=== PATIENT | female | born 1960 | race Caucasian/White ===

== ENCOUNTER 2018-11-11 21:57 | Emergency (ER) | payer SELFPAY ==
[2018-11-11] MEDS ORDERED: Ondansetron 4 MG Tab.DIS PO ONE (22:37)
[2018-11-11] MEDS ORDERED: EPINEPHrine/Lidocaine/Tetracai 3 ML ML TOP ONE (22:38)
--- NOTE | 2018-11-11 23:23 | EDM.PDOC ---
ED HPI GENERAL MEDICAL PROBLEM - General Chief Complaint: Head Injury Stated Complaint: SLIPPED ON ICE AND HIT BACK OF HEAD Time Seen by Provider: 11/11/18 22:28 Source of Information: Reports: Patient History Limitations: Reports: No Limitations - History of Present Illness INITIAL COMMENTS - FREE TEXT/NARRATIVE: The patient slipped on the ice and hit the back of her head. She has a laceration to the back of her head. She does not think she had any LOC. She does have amnesia of the event and she has been asking the same questions over and over. She does not remember eating at her [employer]. Her tetanus is up to date. She has no numbness or weakness. She has no blurred or double vision. She has a headache. She has some nausea but no vomiting. Onset: Sudden Duration: Minutes: Location: Reports: Head Quality: Reports: Sharp Severity: Moderate Improves with: Reports: None Worsens with: Reports: None Associated Symptoms: Reports: Headaches, Nausea/Vomiting. Denies: Chest Pain, Cough, Fever/Chills Treatments PERCH MENDER: Reports: Acetaminophen Posterior Head Pain Score (Numeric/FACES): 3 - Related Data Allergies Allergy/AdvReac Type Severity Reaction Status Date / Time Sulfa (Sulfonamide Allergy Cannot Verified 11/11/18 22:07 Antibiotics) Remember Home Meds: Home Meds . 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: Reports: Endometriosis Psychiatric History: Reports: Addiction Other Dermatologic History: abcess to groins--anarobeic bacteria - Past Surgical History Musculoskeletal Surgical History: Reports: Arthroscopic Knee Social & Family History - Tobacco Use Smoking Status *Q: Never Smoker Second Hand Smoke Exposure: No - Caffeine Use Caffeine Use: Reports: Coffee - Recreational Drug Use Recreational Drug Use: No ED ROS GENERAL - Review of Systems Review Of Systems: See Below Constitutional: Reports: No Symptoms HEENT: Reports: Other (Lacration to the back of her head) Respiratory: Reports: No Symptoms Cardiovascular: Reports: No Symptoms Endocrine: Reports: No Symptoms GI/Abdominal: Reports: Nausea. Denies: Abdominal Pain, Diarrhea, Vomiting : Reports: No Symptoms Musculoskeletal: Reports: No Symptoms Neurological: Reports: Headache. Denies: Numbness, Weakness ED EXAM, HEAD INJURY - Physical Exam Exam: See Below Exam Limited By: No Limitations General Appearance: Alert, No Apparent Distress Head: Other (3cm laceration to the occipital region.) Eyes: Bilateral Eye: EOMI, PERRL Ears: Normal External Exam Nose: Normal Inspection Neck: Non-Tender, Normal Alignment, Normal Inspection Respiratory: No Respiratory Distress, Lungs Clear, Normal Breath Sounds Cardiovascular: Regular Rate, Rhythm, No Edema, No Murmur GI/Abdominal Exam: Soft, Non-Tender, No Organomegaly, No Mass Back Exam: Normal Inspection Extremities: Normal Inspection ED LACERATION/WOUND & JACKIE PROC - Laceration/Wound Repair Head Lac/wound length in cm: 3 Appearance: Subcutaneous, Linear Anesthetic Type: Topical (LET) Skin Prep: Saline Exploration/Debridement/Repair: Wound Explored, In a Bloodless Field, Explored to Base Closed with: Sullivan # of Sutures: 5 Tetanus Status Addressed: Yes Complications: No Course - Vital Signs Last Recorded V/S: Last Vital Signs Temp 97.7 F 11/11/18 22:03 Pulse 77 11/11/18 22:03 Resp 14 11/11/18 22:03 BP 146/80 H 11/11/18 22:03 Pulse Ox 100 11/11/18 22:03 - Orders/Labs/Meds Orders: Active Orders 24 hr Category Date Time Status Head wo Cont [CT] Stat Exams 11/11/18 22:37 Taken Meds: Medications Discontinued Medications Generic Name Dose Route Start Last Admin Trade Name Susu PRN Reason Stop Dose Admin Lidocaine/Tetracaine 3 ml 11/11/18 22:38 11/11/18 22:48 Let Soln TOP 11/11/18 22:39 3 ml ONETIME ONE Administration Ondansetron HCl 4 mg 11/11/18 22:37 11/11/18 22:47 Zofran Odt PO 11/11/18 22:38 4 mg ONETIME ONE Administration - Re-Assessments/Exams Free Text/Narrative Re-Assessment/Exam: 11/11/18 23:[address] of her head and I had my nurse put some LET on her wound. 11/11/18 23:[address] of her head looks good. I stapled her laceration. She does have a concussion. Departure - Departure Time of Disposition: 23:45 Disposition: Home, Self-Care 01 Condition: Good Clinical Impression: Fall Qualifiers: Encounter type: initial encounter Qualified Code(s): W19.XXXA - Unspecified fall, initial encounter Laceration of scalp Qualifiers: Encounter type: initial encounter Qualified Code(s): S01.01XA - Laceration without foreign body of scalp, initial encounter Concussion Qualifiers: Encounter type: initial encounter Loss of consciousness presence/duration: without LOC Qualified Code(s): S06.0X0A - Concussion without loss of consciousness, initial encounter - Discharge Information *PRESCRIPTION DRUG MONITORING PROGRAM REVIEWED*: No *COPY OF PRESCRIPTION DRUG MONITORING REPORT IN PATIENT PAULINO: No Referrals: PCP,None [Primary Care Provider] - Kristine Castillo PA-C [Physician Roentgenology Teacher] - 1 Week Forms: ED Department Discharge Additional Instructions: Wash the wound with warm soapy water 2 times per day and apply antibiotic ointment after. Have the rena removed in 1 week. Look for any signs of infection such as redness, swelling, pain, or drainage. If you see any of those signs, please return or see your doctor. You may need an oral antibiotic. Please return if you have worsening headache, nausea, vomiting, numbness, weakness or if you are not acting right. Take motrin or tylenol for pain. - My Orders Last 24 Hours: My Active Orders 11/11/18 22:37 Head wo Cont [CT] Stat - Assessment/Plan Last 24 Hours: My Active Orders 11/11/18 22:37 Head wo Cont [CT] Stat
--- NOTE | 2018-11-12 16:59 | CT ---
Head CT Technique: Multiple axial sections through the brain were obtained. Intravenous contrast was not utilized. Comparison: No prior intracranial imaging. Findings: Ventricles along with basal cisterns and sulci over the convexities are slightly prominent. No abnormal parenchymal densities are seen. No evidence of intracranial hemorrhage. No midline shift or mass effect is seen. Bone window settings were reviewed which show scalp injury posteriorly. No acute calvarial abnormality is appreciated. Impression: 1. Scalp injury posteriorly. 2. No acute intracranial abnormality is identified. Diagnostic code #2 I agree with preliminary report from ad, finalized on 11/12/18, 12:07 AM Central Time
== END 2018-11-11 23:49 | disposition home or self-care (01) ==
LOC: JD.ED 21:57
DX: S06.0X0A Concussion without loss of consciousness, initial encounter (principal); S01.01XA Laceration without foreign body of scalp, initial encounter; Z88.2 Allergy status to sulfonamides; W00.0XXA Fall on same level due to ice and snow, initial encounter
CPT/HCPCS: 12002; 70450; 99284; A9270; 99283

== ENCOUNTER 2021-01-20 12:27 | Emergency (ER) | payer BC ==
--- NOTE | 2021-01-20 12:43 | EDM.PDOC ---
ED HPI GENERAL MEDICAL PROBLEM - General Chief Complaint: Head Injury Stated Complaint: [facility] Time Seen by Provider: 01/20/21 12:30 Source of Information: Reports: EMS History Limitations: Reports: Intoxication, Other (possible altered mental status. ) - History of Present Illness INITIAL COMMENTS - FREE TEXT/NARRATIVE: 61-year-old female reportedly under the influence of alcohol since last evening and possibly drinking earlier this morning reportedly fell backwards down a flight of stairs at her home this morning. Apparently there are 10 stairs and she fell backwards witnessed by someone else in the home. Reported transient loss of consciousness for approximately 5 minutes. Patient was placed in a c- collar and placed on spine board and transferred to the ED. She does have a hematoma left occipital scalp and an abrasion to her left forehead above her eyebrow. She is known to have a fractured metacarpal in her left foot--I believe 5th -- and is in a cam walker. This was removed in the ED. is unclear if she fell down the stairs with it on her was placed on after she fell down the stairs. Onset: Today, Sudden Onset Date: 01/20/21 Onset Time: 11:55 Duration: Minutes: Location: Reports: Head, Neck, Back Quality: Reports: Ache, Throbbing Severity: Moderate Improves with: Reports: None Worsens with: Reports: None Context: Reports: Trauma. Denies: Activity, Exercise, Lifting, Sick Contact Associated Symptoms: Reports: Confusion. 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 Apparently she just recently enjoyed 2 months of sobriety part of it was due to being in treatment program for 30 days. It is unclear how many days ago she started drinking but she was known to be markedly under the influence of alcohol last evening at her parents home where she is residing. Social & Family History - Caffeine Use Caffeine Use: Reports: Coffee - Living Situation & Occupation Living situation: Reports: Single Occupation: Employed ED ROS GENERAL - Review of Systems Review Of Systems: Unable To Obtain (Able to obtain as the patient is nonverbal at this point time she will nod her head a little bit but she appears to be markedly intoxicated) Reason Not Obtained: Markedly intoxicated. ED EXAM, HEAD INJURY - Physical Exam Exam: See Below Exam Limited By: Other (Mental status and intoxication by alcohol I believe.) General Appearance: Lethargic, Mild Distress, Other Head: Scalp Hematoma (Sachi Mike left occipital scalp.), Facial Abrasions (Abrasions above her left eyebrow forehead) Nexus Criteria: Posterior, Midline Cervical Tenderness, Evidence of Intoxication. No: Altered Level of Consciousness, Painful Distraction Injuries Eyes: Bilateral Eye: Normal Inspection (No scleral icterus or blepharal pallor.), Nystagmus (Nystagmus on lateral gaze bilaterally.), PERRL Ears: Normal External Exam (No blood in either external canal.) Nose: Normal Inspection Throat/Mouth: Other (Tongue is moist. No evidence of dental or tongue trauma.) Neck: Other (C-spine is immobilized in a collar and will remain this way until cleared by) Respiratory: No Respiratory Distress ( CT.), Lungs Clear, Normal Breath Sounds, No Accessory Muscle Use, Other (No evidence of injuries to the clavicles and acromioclavicular joints ribs or sternum on exam.) Cardiovascular: Normal Peripheral Pulses, Regular Rate, Rhythm, No Edema, No Gallop, No Murmur (No subcutaneous emphysema hematomas evident.), No Rub GI/Abdominal Exam: Normal Bowel Sounds, Soft, Non-Tender, No Organomegaly, No Abnormal Bruit, No Mass, Pelvis Stable, Other Extremities: Normal Range of Motion, Other (Ecchymoses over the dorsal aspect of her lateral left foot apparently has a fracture in her left fifth metacarpal and is in a cam boot move both upper extremities and there is no evidence of injuries to the wrists fingers elbows or shoulders. There was no obvious injuries to her thighs knees ankles) Neurologic: No: Oriented x 3 (Oriented to time and place.) DTR: 0: Patella (R), Patella (L), Achilles (R), Achilles (L), 1+: Bicep (R), Bicep (L) Skin: Normal Color, Warm/Dry - Mounika Coma Score Best Eye Response (Mounika): (4) Open Spontaneously Best Verbal Response (Mounika): (4) Confused Conversation Best Motor Response (Mounika): (5) Localizes to Pain Mounika Total: 13 ED LACERATION/WOUND & JACKIE PROC - Endotracheal Intubation ET Intubation Indication: Airway Protection, Other Preparation: Suction, Balloon Tested (Cranial hemorrhage), BVM Set Up, Difficult Airway Equip Pre-Oxygenation: Assisted with BVM, 100% FiO2 Anesthesia Meds: Etomidate (1 mg), Midazolam (2 mg), Vecuronium (7 mg), Other (Lidocaine 100 mg) Placement: Orotracheal, Cuffed, Uncomplicated Placement Cords Visualized: Yes, Grade 1 Number of Attempts: 1 Confirmed By: CO2 Indicator, Bilateral Breath Sounds, Chest Xray ED CENTRAL LINE INSERTION - Central Line Insertion Central Line Indication: IV access Site: subclavian (R) Prep: CDC/MBT Guidelines, Sterile Drapes, Chlorhexidine Lumen: triple Gauge: 7Fr Ultrasound guided: No Guidewire and dilator removed intact: Yes Micropuncture kit used: Yes Complications: No Secured with suture: Yes Post placement confirmation: CXR, all ports aspirated, all ports flushed CXR post-procedure: no pneumothorax, no hemothorax Dressing applied: by nurse #1 Interpretation EKG Date: 01/20/21 Time: 13:42 Rhythm: NSR Rate (Beats/Min): 92 [place]: Normal P-Wave: Enlarged (Consider left atrial hypertrophy) QRS: Other (Early R wave transition consider right ventricular hypertrophy versus septal hypertrophy pattern. Decreased voltage in the limb leads.) ST-T: Other (T wave inversion V2 to V4 nonspecific finding diffuse repolarization abnormality) EKG Interpretation Comments: Abnormal ECG Course - Vital Signs Last Recorded V/S: Last Vital Signs Temp 36.2 C 01/20/21 12:34 Pulse 73 01/20/21 12:34 Resp 10 L 01/20/21 12:34 BP 129/81 01/20/21 12:34 Pulse Ox 100 01/20/21 12:34 - Orders/Labs/Meds Orders: Active Orders 24 hr Category Date Time Status EKG Documentation Completion [RC] STAT Care 01/20/21 12:38 Active Lactated Ringers [Ringers, Lactated] 1,000 ml Med 01/20/21 12:45 Active IV ASDIRECTED Medication Orders Lactated Ringer's (Ringers, Lactated) 1,000 mls @ 125 mls/hr IV ASDIRECTED DEV Last Admin: 01/20/21 13:07 Dose: 125 mls/hr Documented by: MONAE Labs: Laboratory Tests 01/20/21 01/20/21 01/20/21 Range/Units 13:34 13:34 13:34 WBC 6.34 (3.98-10.04) K/mm3 RBC 4.82 (3.98-5.22) M/mm3 Hgb 14.4 (11.2-15.7) gm/dl Hct 43.4 (34.1-44.9) % MCV 90.0 (79.4-94.8) fl MCH 29.9 (25.6-32.2) pg MCHC 33.2 (32.2-35.5) g/dl RDW Std Deviation 45.0 (36.4-46.3) fL Plt Count 190 (182-369) K/mm3 MPV 8.8 L (9.4-12.3) fl Neut % (Auto) 69.6 (34.0-71.1) % Lymph % (Auto) 25.6 (19.3-51.7) % [place] % (Auto) 3.2 L (4.7-12.5) % Eos % (Auto) 0.8 (0.7-5.8) Baso % (Auto) 0.2 (0.1-1.2) % Neut # (Auto) 4.42 (1.56-6.13) K/mm3 Lymph # (Auto) 1.62 (1.18-3.74) K/mm3 [place] # (Auto) 0.20 L (0.24-0.36) K/mm3 Eos # (Auto) 0.05 (0.04-0.36) K/mm3 Baso # (Auto) 0.01 (0.01-0.08) K/mm3 Manual Slide Review Normal smear PT 10.9 (9.7-12.0) SECONDS INR 1.02 APTT (21.7-31.4) SECONDS Puncture Site ABG pH (7.35-7.45) ABG pCO2 (35.0-45.0) mmHg ABG pO2 (80.0-100.0) mmHg ABG HCO3 (22.0-26.0) meq/L ABG O2 Saturation (96.0-97.0) % ABG Base Excess (-2-2.0) Brandan Test O2 Delivery Device Oxygen Flow Rate FiO2 (21.00-100.00) % Tidal Volume cc PEEP cmH20 Sodium 145 (136-145) mEq/L Potassium 3.5 (3.5-5.1) mEq/L Chloride 107 (98-107) mEq/L Carbon Dioxide 23 (21-32) mEq/L Anion Gap 18.5 H (5-15) BUN 12 (7-18) mg/dL Creatinine 0.8 (0.55-1.02) mg/dL Est Cr Clr Drug Dosing TNP Estimated GFR (MDRD) > 60 (>60) mL/min BUN/Creatinine Ratio 15.0 (14-18) Glucose 87 (80-115) mg/dL Calcium 8.7 (8.5-10.1) mg/dL Magnesium 2.0 (1.8-2.4) mg/dl Total Bilirubin 0.2 (0.2-1.0) mg/dL GGT (5-55) U/L AST 27 (15-37) U/L ALT 32 (14-59) U/L Alkaline Phosphatase 66 (46-116) U/L Creatine Kinase 98 (26-192) U/L Troponin I < 0.017 (0.00-0.056) ng/mL C-Reactive Protein 0.4 (<1.0) mg/dL NT-Pro-B Natriuret Pep (0-125) pg/mL Total Protein 7.0 (6.4-8.2) g/dl Albumin 3.8 (3.4-5.0) g/dl Globulin 3.2 gm/dL Albumin/Globulin Ratio 1.2 (1-2) Urine Color (Yellow) Urine Appearance (Clear) Urine pH (5.0-8.0) Ur Specific Baxter (1.005-1.030) Urine Protein (Negative) Urine Glucose (UA) (Negative) Urine Ketones (Negative) Urine Occult Blood (Negative) Urine Nitrite (Negative) Urine Bilirubin (Negative) Urine Urobilinogen (0.2-1.0) Ur Leukocyte Esterase (Negative) Urine RBC (0-5) /hpf Urine WBC (0-5) /hpf Ur Epithelial Cells (0-5) /hpf Urine Bacteria (FEW) /hpf Urine Mucus (FEW) /hpf Urine Opiates Screen (ABVEFS=599) Ur Buprenorphine Scrn (CUTOFF=10) Ur Oxycodone Screen (GLA8FV=352) Urine Methadone Screen (PJTFNJ=014) Ur Propoxyphene Screen (URLUQZ=099) Ur Barbiturates Screen (QJMDTR=868) Ur Tricyclics Screen (NSDLUF=823) Ur Phencyclidine Scrn (CUTOFF=25) Ur Amphetamine Screen (ZIGRGU=285) U Methamphetamines Scrn (OQZTIN=378) U Benzodiazepines Scrn (ISGQRQ=641) U Cocaine Metab Screen (OPAMFN=718) U Marijuana (THC) Screen (CUTOFF=50) Ethyl Alcohol 0.26 (0.00) gm% SARS-CoV-2 RNA (HELGA) (NEGATIVE) 01/20/21 01/20/21 01/20/21 Range/Units 13:34 13:34 13:34 WBC (3.98-10.04) K/mm3 RBC (3.98-5.22) M/mm3 Hgb (11.2-15.7) gm/dl Hct (34.1-44.9) % MCV (79.4-94.8) fl MCH (25.6-32.2) pg MCHC (32.2-35.5) g/dl RDW Std Deviation (36.4-46.3) fL Plt Count (182-369) K/mm3 MPV (9.4-12.3) fl Neut % (Auto) (34.0-71.1) % Lymph % (Auto) (19.3-51.7) % [place] % (Auto) (4.7-12.5) % Eos % (Auto) (0.7-5.8) Baso % (Auto) (0.1-1.2) % Neut # (Auto) (1.56-6.13) K/mm3 Lymph # (Auto) (1.18-3.74) K/mm3 [place] # (Auto) (0.24-0.36) K/mm3 Eos # (Auto) (0.04-0.36) K/mm3 Baso # (Auto) (0.01-0.08) K/mm3 Manual Slide Review PT (9.7-12.0) SECONDS INR APTT 26.6 (21.7-31.4) SECONDS Puncture Site ABG pH (7.35-7.45) ABG pCO2 (35.0-45.0) mmHg ABG pO2 (80.0-100.0) mmHg ABG HCO3 (22.0-26.0) meq/L ABG O2 Saturation (96.0-97.0) % ABG Base Excess (-2-2.0) Brandan Test O2 Delivery Device Oxygen Flow Rate FiO2 (21.00-100.00) % Tidal Volume cc PEEP cmH20 Sodium (136-145) mEq/L Potassium (3.5-5.1) mEq/L Chloride (98-107) mEq/L Carbon Dioxide (21-32) mEq/L Anion Gap (5-15) BUN (7-18) mg/dL Creatinine (0.55-1.02) mg/dL Est Cr Clr Drug Dosing Estimated GFR (MDRD) (>60) mL/min BUN/Creatinine Ratio (14-18) Glucose (80-115) mg/dL Calcium (8.5-10.1) mg/dL Magnesium (1.8-2.4) mg/dl Total Bilirubin (0.2-1.0) mg/dL GGT 48 (5-55) U/L AST (15-37) U/L ALT (14-59) U/L Alkaline Phosphatase (46-116) U/L Creatine Kinase (26-192) U/L Troponin I (0.00-0.056) ng/mL C-Reactive Protein (<1.0) mg/dL NT-Pro-B Natriuret Pep 39 (0-125) pg/mL Total Protein (6.4-8.2) g/dl Albumin (3.4-5.0) g/dl Globulin gm/dL Albumin/Globulin Ratio (1-2) Urine Color (Yellow) Urine Appearance (Clear) Urine pH (5.0-8.0) Ur Specific Baxter (1.005-1.030) Urine Protein (Negative) Urine Glucose (UA) (Negative) Urine Ketones (Negative) Urine Occult Blood (Negative) Urine Nitrite (Negative) Urine Bilirubin (Negative) Urine Urobilinogen (0.2-1.0) Ur Leukocyte Esterase (Negative) Urine RBC (0-5) /hpf Urine WBC (0-5) /hpf Ur Epithelial Cells (0-5) /hpf Urine Bacteria (FEW) /hpf Urine Mucus (FEW) /hpf Urine Opiates Screen (TZZJYM=092) Ur Buprenorphine Scrn (CUTOFF=10) Ur Oxycodone Screen (NCP3PI=077) Urine Methadone Screen (QLTCZO=830) Ur Propoxyphene Screen (GVSYVP=446) Ur Barbiturates Screen (PEWJRT=127) Ur Tricyclics Screen (TWQJSO=919) Ur Phencyclidine Scrn (CUTOFF=25) Ur Amphetamine Screen (WNPJRT=449) U Methamphetamines Scrn (FSGVTN=834) U Benzodiazepines Scrn (MWLIOF=217) U Cocaine Metab Screen (MTEJAS=016) U Marijuana (THC) Screen (CUTOFF=50) Ethyl Alcohol (0.00) gm% SARS-CoV-2 RNA (HELGA) (NEGATIVE) 01/20/21 01/20/21 01/20/21 Range/Units 14:36 14:36 14:36 WBC (3.98-10.04) K/mm3 RBC (3.98-5.22) M/mm3 Hgb (11.2-15.7) gm/dl Hct (34.1-44.9) % MCV (79.4-94.8) fl MCH (25.6-32.2) pg MCHC (32.2-35.5) g/dl RDW Std Deviation (36.4-46.3) fL Plt Count (182-369) K/mm3 MPV (9.4-12.3) fl Neut % (Auto) (34.0-71.1) % Lymph % (Auto) (19.3-51.7) % [place] % (Auto) (4.7-12.5) % Eos % (Auto) (0.7-5.8) Baso % (Auto) (0.1-1.2) % Neut # (Auto) (1.56-6.13) K/mm3 Lymph # (Auto) (1.18-3.74) K/mm3 [place] # (Auto) (0.24-0.36) K/mm3 Eos # (Auto) (0.04-0.36) K/mm3 Baso # (Auto) (0.01-0.08) K/mm3 Manual Slide Review PT (9.7-12.0) SECONDS INR APTT (21.7-31.4) SECONDS Puncture Site ABG pH (7.35-7.45) ABG pCO2 (35.0-45.0) mmHg ABG pO2 (80.0-100.0) mmHg ABG HCO3 (22.0-26.0) meq/L ABG O2 Saturation (96.0-97.0) % ABG Base Excess (-2-2.0) Brandan Test O2 Delivery Device Oxygen Flow Rate FiO2 (21.00-100.00) % Tidal Volume cc PEEP cmH20 Sodium (136-145) mEq/L Potassium (3.5-5.1) mEq/L Chloride (98-107) mEq/L Carbon Dioxide (21-32) mEq/L Anion Gap (5-15) BUN (7-18) mg/dL Creatinine (0.55-1.02) mg/dL Est Cr Clr Drug Dosing Estimated GFR (MDRD) (>60) mL/min BUN/Creatinine Ratio (14-18) Glucose (80-115) mg/dL Calcium (8.5-10.1) mg/dL Magnesium (1.8-2.4) mg/dl Total Bilirubin (0.2-1.0) mg/dL GGT (5-55) U/L AST (15-37) U/L ALT (14-59) U/L Alkaline Phosphatase (46-116) U/L Creatine Kinase (26-192) U/L Troponin I (0.00-0.056) ng/mL C-Reactive Protein (<1.0) mg/dL NT-Pro-B Natriuret Pep (0-125) pg/mL Total Protein (6.4-8.2) g/dl Albumin (3.4-5.0) g/dl Globulin gm/dL Albumin/Globulin Ratio (1-2) Urine Color Yellow (Yellow) Urine Appearance Clear (Clear) Urine pH 6.0 (5.0-8.0) Ur Specific Baxter 1.025 (1.005-1.030) Urine Protein Trace H (Negative) Urine Glucose (UA) Negative (Negative) Urine Ketones Negative (Negative) Urine Occult Blood Trace-lysed H (Negative) Urine Nitrite Negative (Negative) Urine Bilirubin Negative (Negative) Urine Urobilinogen 0.2 (0.2-1.0) Ur Leukocyte Esterase Negative (Negative) Urine RBC 0-5 (0-5) /hpf Urine WBC Not seen (0-5) /hpf Ur Epithelial Cells Not seen (0-5) /hpf Urine Bacteria Few (FEW) /hpf Urine Mucus Many H (FEW) /hpf Urine Opiates Screen Negative (YSQEAI=323) Ur Buprenorphine Scrn Negative (CUTOFF=10) Ur Oxycodone Screen Negative (UUV3VR=527) Urine Methadone Screen Negative (DTQUFW=189) Ur Propoxyphene Screen Negative (CLIGLT=783) Ur Barbiturates Screen Negative (ILNNTU=259) Ur Tricyclics Screen Negative (PDYVQE=459) Ur Phencyclidine Scrn Negative (CUTOFF=25) Ur Amphetamine Screen Negative (QCPKRI=736) U Methamphetamines Scrn Negative (FYWEFB=603) U Benzodiazepines Scrn Negative (FWUYRC=887) U Cocaine Metab Screen Negative (ULUSXA=583) U Marijuana (THC) Screen Negative (CUTOFF=50) Ethyl Alcohol (0.00) gm% SARS-CoV-2 RNA (HELGA) Negative (NEGATIVE) 01/20/21 Range/Units 14:59 WBC (3.98-10.04) K/mm3 RBC (3.98-5.22) M/mm3 Hgb (11.2-15.7) gm/dl Hct (34.1-44.9) % MCV (79.4-94.8) fl MCH (25.6-32.2) pg MCHC (32.2-35.5) g/dl RDW Std Deviation (36.4-46.3) fL Plt Count (182-369) K/mm3 MPV (9.4-12.3) fl Neut % (Auto) (34.0-71.1) % Lymph % (Auto) (19.3-51.7) % [place] % (Auto) (4.7-12.5) % Eos % (Auto) (0.7-5.8) Baso % (Auto) (0.1-1.2) % Neut # (Auto) (1.56-6.13) K/mm3 Lymph # (Auto) (1.18-3.74) K/mm3 [place] # (Auto) (0.24-0.36) K/mm3 Eos # (Auto) (0.04-0.36) K/mm3 Baso # (Auto) (0.01-0.08) K/mm3 Manual Slide Review PT (9.7-12.0) SECONDS INR APTT (21.7-31.4) SECONDS Puncture Site Rt radial ABG pH 7.34 L (7.35-7.45) ABG pCO2 38.8 (35.0-45.0) mmHg ABG pO2 190.0 H* (80.0-100.0) mmHg ABG HCO3 20.2 L (22.0-26.0) meq/L ABG O2 Saturation 99.4 H (96.0-97.0) % ABG Base Excess -4.7 L (-2-2.0) Brandan Test Positive O2 Delivery Device Ventilator Oxygen Flow Rate 0.0 FiO2 60.00 (21.00-100.00) % Tidal Volume 450.0 cc PEEP 5.0 cmH20 Sodium (136-145) mEq/L Potassium (3.5-5.1) mEq/L Chloride (98-107) mEq/L Carbon Dioxide (21-32) mEq/L Anion Gap (5-15) BUN (7-18) mg/dL Creatinine (0.55-1.02) mg/dL Est Cr Clr Drug Dosing Estimated GFR (MDRD) (>60) mL/min BUN/Creatinine Ratio (14-18) Glucose (80-115) mg/dL Calcium (8.5-10.1) mg/dL Magnesium (1.8-2.4) mg/dl Total Bilirubin (0.2-1.0) mg/dL GGT (5-55) U/L AST (15-37) U/L ALT (14-59) U/L Alkaline Phosphatase (46-116) U/L Creatine Kinase (26-192) U/L Troponin I (0.00-0.056) ng/mL C-Reactive Protein (<1.0) mg/dL NT-Pro-B Natriuret Pep (0-125) pg/mL Total Protein (6.4-8.2) g/dl Albumin (3.4-5.0) g/dl Globulin gm/dL Albumin/Globulin Ratio (1-2) Urine Color (Yellow) Urine Appearance (Clear) Urine pH (5.0-8.0) Ur Specific Baxter (1.005-1.030) Urine Protein (Negative) Urine Glucose (UA) (Negative) Urine Ketones (Negative) Urine Occult Blood (Negative) Urine Nitrite (Negative) Urine Bilirubin (Negative) Urine Urobilinogen (0.2-1.0) Ur Leukocyte Esterase (Negative) Urine RBC (0-5) /hpf Urine WBC (0-5) /hpf Ur Epithelial Cells (0-5) /hpf Urine Bacteria (FEW) /hpf Urine Mucus (FEW) /hpf Urine Opiates Screen (PTBUSK=841) Ur Buprenorphine Scrn (CUTOFF=10) Ur Oxycodone Screen (GXS3MV=105) Urine Methadone Screen (XTTFGB=885) Ur Propoxyphene Screen (YAWIAZ=825) Ur Barbiturates Screen (FFJWVU=512) Ur Tricyclics Screen (ALLJTN=576) Ur Phencyclidine Scrn (CUTOFF=25) Ur Amphetamine Screen (LRSLMS=373) U Methamphetamines Scrn (CLQMAO=918) U Benzodiazepines Scrn (UDXEBA=912) U Cocaine Metab Screen (MBXKUS=823) U Marijuana (THC) Screen (CUTOFF=50) Ethyl Alcohol (0.00) gm% SARS-CoV-2 RNA (HELGA) (NEGATIVE) Meds: Medications Generic Name Dose Route Start Last Admin Trade Name Freq PRN Reason Stop Dose Admin Lactated Ringer's 1,000 mls @ 125 mls/hr 01/20/21 12:45 01/20/21 13:07 Ringers, Lactated IV 125 mls/hr ASDIRECTED DEV Administration Discontinued Medications Generic Name Dose Route Start Last Admin Trade Name Freq PRN Reason Stop Dose Admin Etomidate 40 mg 01/20/21 13:00 Etomidate 2 Mg/Ml 20 Ml Sdv IVPUSH 01/20/21 13:01 .STK-MED ONE Lidocaine HCl 10 ml 01/20/21 13:00 Lidocaine 1% 10 Ml Mdv .ROUTE 01/20/21 13:01 .STK-MED ONE Midazolam HCl 5 mg 01/20/21 13:00 Midazolam 1 Mg/Ml 5 Ml Sdv .ROUTE 01/20/21 13:01 .STK-MED ONE Midazolam HCl 5 mg 01/20/21 13:00 Midazolam 1 Mg/Ml 5 Ml Sdv .ROUTE 01/20/21 13:01 .STK-MED ONE Propofol 1,000 mg 01/20/21 13:00 Propofol 1,000 Mg/100 Ml Sdv .ROUTE 01/20/21 13:01 .STK-MED ONE Vecuronium [place] 10 mg 01/20/21 13:00 Vecuronium 10 Mg Vial .ROUTE 01/20/21 13:01 .STK-MED ONE Vecuronium [place] 10 mg 01/20/21 13:00 Vecuronium 10 Mg Vial .ROUTE 01/20/21 13:01 .STK-MED ONE Vecuronium [place] 10 mg 01/20/21 13:00 Vecuronium 10 Mg Vial .ROUTE 01/20/21 13:01 .STK-MED ONE - Radiology Interpretation Free Text/Narrative:: 61-year-old female brought to the ED per [facility] after reportedly falling down a flight of stairs in her parents home. She was known to be drinking alcohol fairly heavily last evening it is unclear how long into the night she may have been drinking. She has a Cam walker on her left foot due to a fracture of her left fifth metatarsal that occurred about a week ago. The Cam boot was removed in the ED. Patient lost consciousness witnessed by parents for a good 10 minutes and even no response to aggressive physical stimuli by her sister. Paramedics arrived and placed her in a cervical collar and placed on spine board and transported to the ED. 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 She has an abrasion to her left upper forehead and a large palpable hematoma 6 cm in diameter left occipital scalp. There was no obvious injuries to her upper extremities chest wall sternum clavicles or abdomen. She did complain of some mild pain in her lumbar spine on palpation. Pelvis was intact lower extremities intact in terms of full range of motion of both hips no injuries to the knees or ankles. She does have ecchymoses along the lateral aspect of her dorsal left foot at recent fifth metatarsal fracture site. Plan will be to send her for CT head, CT cervical spines, CT thoracic spine and CT lumbar spine. A chest x-ray will also be done. - Re-Assessments/Exams Free Text/Narrative Re-Assessment/Exam: 01/20/21 13:10: CT of the head reveals ventricles along with both basal cisterns and sulci over the convexities to be mildly prominent. Stable asymmetry in size of the lateral ventricles are noted. Slight amount of blood is noted within the anterior hemispheric falx anteriorly. Mild increased blood is seen superior to both cerebellar hemispheres as well as lateral to the left cerebellar hemisphere. Minimal blood is noted within the left sylvian fissure. Additional extra-axial blood is seen within the sulci within the left posterior parietal region. No other areas of abnormal intracranial hemorrhage are appreciated. No midline shift or mass-effect is appreciated. Soft tissue hematoma seen within the posterior left-sided scalp. Bone window settings were reviewed which shows no acute calvarial findings visualized mastoid sinuses and paranasal sinuses showed nothing acute. In summary she has numerous extra-axial areas of h emorrhage as noted above this causes no significant midline shift or mass-effect mild generalized atrophy. The patient remained confused and continue to fight with nursing staff and not be cooperative. Decision made that she required intubation due to her closed head injuries and inability to make appropriate decisions and impaired judgment. Therefore she was intubated at 1335 hrs. with a 7.5 [place] ET tube at 23 cm of the corner of her right mouth. Good air entry to both lung light appreciated. She was then placed on the vent at FiO2 initially of 60% rate of 12 tidal volume of 450 and PEEP of 5. CT of the cervical spine reveals fairly severe disc space narrowing at the C4-5 level. Mild disc space narrowing is noted at the C5-6 and C6-7 level. Slight posterior osteophytes are seen at those levels as well as anterior osteophytes. Degenerative changes are also noted between the dens and the anterior arch of C1. Moderate to severe right-sided neuroforaminal stenosis and moderate left-sided neuroforaminal stenosis is noted at C4-5 level. Other neuroforamina are felt to be fairly well patent. No bony central canal stenosis is appreciated. Spurring is noted within the uncovertebral joints at C4-5 and C5-6 levels. No acute fractures or subluxation are appreciated. Mild scattered degenerative changes seen within the apophyseal joints. CT thoracic spine reveals vertebral body heights and disc spaces to be fairly well-preserved within the thoracic spine. No fractures are appreciated no paravertebral soft tissue swelling is seen. Neuroforamen appear to be patent. No central canal stenosis is seen no abnormal subluxation is appreciated. CT of the lumbar spine reveals a comparison to previous MRI study of 06/06/2019. There is a compression deformity within the superior endplate of L1. This appears to be stable from prior MRI. At the vertebral body heights are maintained within the lumbar spine. No acute fractures appreciated no abnormal subluxation is seen. Slight circumferential disc bulges are seen at L3-4 and L4-5 levels no discrete central or neuroforaminal stenosis is seen. It became apparent when we tried to intubate the patient that there was unsatisfactory intravenous access in her upper extremities as patient did not respond to etomidate given IV or vecuronium given IV. A new IV was started in her left foot which we utilized to provide sedation for intubation. Because of this a central line was placed in the right subclavian vein with a modest degree of difficulty due to guidewire striking something firm I accessed the vein 3 different occasions. Patient had a orogastric tube placed and chest x-ray done post procedures revealed the endotracheal tube to be lying slightly below the inferior level of the clavicles in good position nasogastric tube is seen with tip passing through the gastroesophageal junction and lies within the proximal stomach. Right-sided subclavian line is seen with the tip lying within the superior vena cava close to the right atrial junction. Lungs are clear with no acute parenchymal changes no acute osseous findings no pneumothorax. Satisfactory position of all tubes. A blood gas done before discharge revealed her FiO2 to be 160 I believe. Therefore her vent settings were altered with a tidal volume reduced to 410 and FiO2 to 40%. Patient will be transferred to [facility] emergency department at the [facility] [place] [facility]. Physician was --ED physician. Note I had spoken spoken previously with [facility] in [place] and neurosurgeon Dr. Max who was in the middle of the case advised that we send the patient to [facility] versus keeping her in [place]. 01/20/21 15:00: Total white count was 6.34 the auto differential shows 70% neutrophils. Hemoglobin is 14.4 with hematocrit of 43.4. MCV is normal at 90.0. Platelet count is 190,000. PT is 10.9 with an INR of 1.02 PTT is 26.6. Sodium was 145 with a potassium of 3.5. Chloride 107 with a bicarb of 23. Anion gap is mildly elevated at 18.5. BUN is 12 with a creatinine of 0.8 and a GFR greater than 60. Glucose is 87 with a calcium of 8.7 magnesium is 2.0. Bilirubin is 0.2 with a GGT of 48 AST of 27 and ALT of 32. Alk phosphatase is 66. Total CPK was 98. Troponin I is less than 0.017 C-reactive protein 0.4 BNP was 39. Total protein is 7.0 with an albumin fraction of 3.8. Urinalysis obtained by catheterization reveals trace of protein trace of lysed occult blood no signs of infection. Blood alcohol is 0.26 g%.Urine drug screen was completely negative. COVID-19 screen was negative as well. Departure - Departure Time of Disposition: 15:15 Disposition: DC/Tfer to [facility] 02 Condition: Serious Clinical Impression: Fall down stairs Qualifiers: Encounter type: initial encounter Qualified Code(s): W10.8XXA - Fall (on) (from) other stairs and steps, initial encounter Alcohol intoxication Qualifiers: Complication of substance-induced condition: uncomplicated Qualified Code(s): F10.920 - Alcohol use, unspecified with intoxication, uncomplicated Intracranial hemorrhage following injury Qualifiers: Encounter type: initial encounter Loss of consciousness presence/duration: with LOC of 30 min or less Qualified Code(s): S06.301A - Unspecified focal traumatic brain injury with loss of consciousness of 30 minutes or less, initial encounter - Discharge Information Referrals: Cathie Ludwig [facility] [employer] [facility] [facility] [Primary Care Provider] - Forms: ED Department Discharge Critical Care Note - Critical Care Note Total Time (mins): 120 Sepsis Event Note (ED) - Focused Exam Vital Signs: Vital Signs Temp Pulse Resp BP Pulse Ox 01/20/21 12:34 36.2 C 73 10 L 129/81 100 - My Orders Last 24 Hours: My Active Orders 01/20/21 12:38 EKG Documentation Completion [RC] STAT 01/20/21 12:45 Lactated Ringers [Ringers, Lactated] 1,000 ml IV ASDIRECTED - Assessment/Plan Last 24 Hours: My Active Orders 01/20/21 12:38 EKG Documentation Completion [RC] STAT 01/20/21 12:45 Lactated Ringers [Ringers, Lactated] 1,000 ml IV ASDIRECTED
[2021-01-20] MEDS ORDERED: Lactated Ringers 1,000 ML IV SCH (12:45)
[2021-01-20] MEDS ORDERED: Lidocaine 1% 10 ML MDV ONE (13:00)
[2021-01-20] MEDS ORDERED: Propofol 1,000 MG/100 ML SDV ONE (13:00)
[2021-01-20] MEDS ORDERED: Midazolam 1 MG/ML 5 ML SDV ONE ×2 (13:00)
[2021-01-20] MEDS ORDERED: Etomidate 2 MG/ML 20 ML SDV IVPUSH ONE (13:00)
--- NOTE | 2021-01-20 13:23 | CT ---
Head CT Technique: Multiple axial sections through the brain were obtained. Intravenous contrast not utilized. Reconstructed coronal and sagittal images were obtained. Comparison: Prior head CT study of 11/11/18. Findings: Ventricles along with basal cisterns and sulci over the convexities are mildly prominent. Stable asymmetry in size of the lateral ventricles are noted. Slight amount of blood is noted within the interhemispheric falx anteriorly. Mild increased blood is seen superior to both cerebellar hemispheres as well as lateral to the left cerebellar hemisphere. Minimal blood is noted within the left sylvian fissure. Additional extra-axial blood is seen within the sulci within the left posterior parietal region. No other areas of abnormal intracranial hemorrhage are seen. No midline shift or mass-effect is appreciated. Soft tissue hematoma is seen within the posterior and left-sided scalp. Bone window settings were reviewed which shows no acute calvarial finding. Visualized mastoid sinuses and paranasal sinuses shows nothing acute. Impression: 1. Numerous extra-axial areas of hemorrhage as noted above. This causes no significant midline shift or mass-effect. 2. Mild generalized atrophy. 3. Soft tissue hematoma within the posterior and left-sided scalp. Diagnostic code #5
--- NOTE | 2021-01-20 13:27 | CT ---
CT cervical spine Technique: Multiple axial sections were obtained from above C1 inferiorly through the T1-2 disc. Reconstructed coronal and sagittal images were obtained. Findings: Fairly severe disc space narrowing is seen at C4-5. Mild disc space narrowing is noted at C5-6 and C6-7. Slight posterior osteophytes are seen at these 3 levels as well as anterior osteophytes. Degenerative changes is also noted between the dens and anterior arch of C1. Moderate to severe right-sided neural foraminal stenosis and moderate left-sided neural foraminal stenosis is noted at C4-5. Other neural foramina are felt to be fairly well patent. No bony central canal stenosis is appreciated. Spurring is noted within the uncovertebral joints at C4-5 and C5-6. No acute fracture or subluxation is appreciated. Mild scattered degenerative change is seen within the apophyseal joints. Impression: 1. Degenerative change as noted above. 2. No acute fracture or acute subluxation is seen on CT study of the cervical spine. Diagnostic code #2
--- NOTE | 2021-01-20 13:33 | CT ---
CT lumbar spine Technique: Multiple axial sections were obtained through the lumbar spine. Reconstructed coronal and sagittal images were obtained. Comparison: Previous lumbar spine MRI study of 06/06/19. Findings: There is a compression deformity within the superior endplate of L1. This appears to be stable from prior MRI. Other vertebral body heights are maintained within the lumbar spine. No acute fracture is appreciated. No abnormal subluxation is seen. Slight circumferential disc bulges are seen at L3-4 and L4-5. No discrete central or neural foraminal stenosis is seen. Impression: 1. Stable compression deformity within the L1 vertebral body. 2. Mild degenerative change. 3. Nothing acute is seen on CT study of the lumbar spine. Diagnostic code #2
--- NOTE | 2021-01-20 13:35 | CT ---
CT thoracic spine Technique: Multiple axial sections were obtained through the thoracic spine. Reconstructed coronal and sagittal images were obtained. Comparison: No prior thoracic spine imaging is available. Findings: Vertebral body heights and disc spaces are fairly well-preserved within the thoracic spine. No fracture is appreciated. No paravertebral soft tissue swelling is seen. Neural foramina appear to be patent. No central canal stenosis is seen. No abnormal subluxation is appreciated. Impression: 1. Nothing acute is appreciated on CT study of the thoracic spine. Diagnostic code #1
--- NOTE | 2021-01-20 14:50 | CR ---
Chest: Portable supine view of the chest. Comparison: Prior chest x-ray on 07/22/20. Heart size and mediastinum are within normal limits. Endotracheal tube is seen with tip lying slightly below the inferior level of the clavicles in satisfactory position. Nasogastric tube is seen with tip passing through the gastroesophageal junction and lies within the proximal stomach. Right-sided PICC line is seen with tip lying within the superior vena cava close to the right atrial junction. Lungs are clear of no acute parenchymal change. No acute osseous finding is seen. Impression: 1. Slightly proximal position of nasogastric tube. 2. Right-sided PICC line lying at the level of the superior vena cava and right atria. 3. Satisfactory position of endotracheal tube. 4. Nothing acute is otherwise seen. Diagnostic code #2
== END 2021-01-20 15:15 ==
LOC: JD.ED 12:27
DX: S06.301A Unspecified focal traumatic brain injury with loss of consciousness of 30 minutes or less, initial encounter (principal); F10.120 Alcohol abuse with intoxication, uncomplicated; Z88.2 Allergy status to sulfonamides; Z20.822 Contact with and (suspected) exposure to COVID-19; W10.8XXA Fall (on) (from) other stairs and steps, initial encounter
CPT/HCPCS: 31500; 36415; 36556; 36600; 43752; 70450; 72125; 72128; 72131; 80053; 80306; 80307; 81001; 82550; 82803; 82977; 83735; 83880; 84484; 85025; 85610; 85730; 86140; 87635; 93005; 99285; J2250; J2704; J3490; J7120; 93010; 99291; 99292; U0002

== ENCOUNTER 2021-06-25 07:04 | Day surgery (SDC) | payer BC ==
[~2021-06-25 07:04] MED LIST: Acetaminophen 325 MG Tab PO SCH; Lactated Ringers 1,000 ML IV SCH; Lidocaine 1%/Sod Bicarbonate in NS 8.4% 1 ML Syringe IDERM PRN; Pregabalin 25 MG Cap PO SCH; Sodium Chloride 0.9% 10 ML Syringe FLUSH PRN; oxyCODONE ER 10 MG TAB.ER PO SCH
[2021-06-25] MEDS ORDERED: Lactated Ringers 0 ML ONE (07:13)
[2021-06-25] MEDS ORDERED: Ondansetron 4 MG/2 ML SDV ONE (07:13)
[2021-06-25] MEDS ORDERED: Midazolam 1 MG/ML 2 ML SDV ONE (07:14)
[2021-06-25] MEDS ORDERED: fentaNYL 100 MCG/2 ML SDV ONE (07:14)
[2021-06-25] MEDS ORDERED: Propofol 200 MG/20 ML SDV ONE (07:14)
--- NOTE | 2021-06-25 07:29 | PCM.PREANE ---
Preanesthetic Assessment - Anesthesia/Transfusion/Family Hx Anesthesia History: Prior Anesthesia Without Reaction Family History of Anesthesia Reaction: No Transfusion History: No Prior Transfusion(s) - Review of Systems General: No Symptoms, Other (denies ETOH use, hx of SAB 01/17 from falling down stairs, no residual effects.) Pulmonary: Cough (denies) Cardiovascular: No Symptoms Gastrointestinal: No Symptoms Neurological: Headache Other: Reports: Depression, Anxiety - Physical Assessment NPO Status Date: 06/24/21 NPO Status Time: 23:55 Weight: 72 kg ASA Class: 2 Mental Status: Alert & Oriented x3 Dentition: Reports: Normal Dentition Thyro-Mental Finger Breadths: 3 Mouth Opening Finger Breadths: 3 ROM/Head Extension: Full Lungs: Clear to Auscultation, Normal Respiratory Effort Cardiovascular: Regular Rate, Regular Rhythm - Imaging/EKG Impressions: ekg demonstrates SR at 63 cxr within normal limits - Allergies Allergies/Adverse Reactions: Allergies Allergy/AdvReac Type Severity Reaction Status Date / Time Sulfa (Sulfonamide Allergy Cannot Verified 01/20/21 12:59 Antibiotics) Remember - Blood Blood Available: No Product(s) Available: None - Anesthesia Plan Pre-Op Medication Ordered: None - Acknowledgements Anesthesia Type Planned: Spinal Pt an Appropriate Candidate for the Planned Anesthesia: Yes Alternatives and Risks of Anesthesia Discussed w Pt/Guardian: Yes Pt/Guardian Understands and Agrees with Anesthesia Plan: Yes PreAnesthesia Questionnaire HEENT History: Reports: Impaired Vision 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 Apparently she just recently enjoyed 2 months of sobriety part of it was due to being in treatment program for 30 days. It is unclear how many days ago she started drinking but she was known to be markedly under the influence of alcohol last evening at her parents home where she is residing. - HOME MEDS Home Medications: Home Meds Apixaban [Eliquis] 2.5 mg PO BID #60 tablet 06/24/21 [Rx] oxyCODONE 5 - 10 mg PO Q4H PRN #30 tab 06/24/21 [Rx] - CURRENT (IN HOUSE) MEDS Current Meds: Current Medications Acetaminophen (Acetaminophen 325 Mg Tab) 975 mg PO ONETIME DEV Stop: 06/25/21 16:00 Morphine Sulfate 8 mg/Epinephrine HCl 0.3 mg/Cefuroxime Sodium 750 mg/Ketorolac Tromethamine 30 mg/Sodium Chloride 7.9 ml 0 mg .XX ASDIRECTED PRN PRN Reason: Pain Stop: 06/25/21 23:00 Lactated Ringer's (Ringers, Lactated) 1,000 mls @ 125 mls/hr IV ASDIRECTED DEV Lidocaine/Sodium Bicarbonate (Lidocaine 1%/Sod Bicarbonate In Ns 8.4% 1 Ml Syringe) 0.25 ml IDERM ONETIME PRN PRN Reason: Prior to IV Start Oxycodone HCl (Oxycodone Er 10 Mg Tab.Er) 10 mg PO ONETIME DEV Stop: 06/25/21 16:00 Pregabalin (Pregabalin 25 Mg Cap) 50 mg PO ONETIME DEV Stop: 06/25/21 16:00 Sodium Chloride (Sodium Chloride 0.9% 10 Ml Syringe) 10 ml FLUSH ASDIRECTED PRN PRN Reason: Keep Vein Open Discontinued Medications Fentanyl (Fentanyl 100 Mcg/2 Ml Sdv) Confirm Administered Dose 100 mcg .ROUTE .STK-MED ONE Stop: 06/25/21 07:15 Lactated Ringer's (Ringers, Lactated) Confirm Administered Dose 1,000 mls @ as directed .ROUTE .STK-MED ONE Stop: 06/25/21 07:14 Midazolam HCl (Midazolam 1 Mg/Ml 2 Ml Sdv) Confirm Administered Dose 2 mg .ROUTE .STK-MED ONE Stop: 06/25/21 07:15 Ondansetron HCl (Ondansetron 4 Mg/2 Ml Sdv) Confirm Administered Dose 4 mg .ROUTE .STK-MED ONE Stop: 06/25/21 07:14 Propofol (Propofol 200 Mg/20 Ml Sdv) Confirm Administered Dose 600 mg .ROUTE .STK-MED ONE Stop: 06/25/21 07:15
[2021-06-25] MEDS ORDERED: Acetaminophen 325 MG Tab PO SCH (07:45)
[2021-06-25] MEDS ORDERED: oxyCODONE ER 10 MG TAB.ER PO SCH (07:45)
[2021-06-25] MEDS ORDERED: Pregabalin 25 MG Cap PO SCH (07:45)
[2021-06-25] MEDS ORDERED: ceFAZolin 1 GM Vial ONE (08:00)
[2021-06-25] MEDS ORDERED: Ropivacaine 0.5% 5 MG/ML 30 ML SDV ONE (08:20)
[2021-06-25] MEDS ORDERED: EPINEPHrine 1 MG/ML SDV ONE (08:20)
[2021-06-25] MEDS ORDERED: Sodium Chloride 0.9% 250 ML ONE (08:31)
[2021-06-25] MEDS ORDERED: ePHEDrine 50 MG/ML SDV ONE (08:43)
[2021-06-25] MEDS ORDERED: Lidocaine 1% 4 ML ONE (08:45)
[2021-06-25] MEDS ORDERED: oxyCODONE 5 MG Tab PO PRN (09:29)
[2021-06-25] MEDS: Vancomycin 1 GM SDV ONE ×2 (09:33→09:40)
[2021-06-25] MEDS: Morphine 8 MG, EPINEPHrine 0.3 MG, Cefuroxime 750 MG, Ketorolac 30 MG, Sodium Chloride ... PRN ×10 (09:34→09:40)
[2021-06-25] MEDS ORDERED: Ondansetron 4 MG/2 ML SDV IVPUSH PRN (10:24)
[2021-06-25] MEDS ORDERED: HYDROmorphone 0.5 MG/0.5 ML Syringe IVPUSH PRN (10:24)
--- NOTE | 2021-06-25 10:24 | PCM.POSTAN ---
POST ANESTHESIA ASSESSMENT - MENTAL STATUS Mental Status: Alert, Oriented - VITAL SIGNS Vital Signs: Last Vital Signs Temp 36.7 C 06/25/21 07:10 Pulse 61 06/25/21 07:10 Resp 14 06/25/21 07:10 BP 109/68 06/25/21 07:10 Pulse Ox 98 06/25/21 07:10 - RESPIRATORY Respiratory Status: Respiratory Rate WNL, Airway Patent, O2 Saturation Stable - CARDIOVASCULAR CV Status: Pulse Rate WNL, Blood Pressure Stable - GASTROINTESTINAL GI Status: No Symptoms - PAIN Pain Score: 0 - POST OP HYDRATION Hydration Status: Adequate & Stable
--- NOTE | 2021-06-25 11:13 | CR ---
Left knee: AP and crosstable lateral views of the left knee were obtained. Comparison: Prior CT left knee study of 06/19/21. Prosthesis seen within the patellofemoral joint. Components are aligned. Soft tissue air is noted. Minimal joint space narrowing is seen medially. No acute osseous abnormality is otherwise seen. Impression: 1. Patellofemoral prosthesis. 2. Mild medial joint space narrowing. 3. Postsurgical soft tissue air. Diagnostic code #2
[2021-06-25] MEDS ORDERED: Haloperidol Lactate 5 MG/ML SDV IVPUSH ONE (11:48)
--- NOTE | 2021-06-25 12:26 | PCM48HPAN ---
Post Anesthesia Note - EVALUATION WITHIN 48HRS OF ANESTHETIC Vital Signs in Normal Range: Yes Patient Participated in Evaluation: Yes Respiratory Function Stable: Yes Airway Patent: Yes Cardiovascular Function Stable: Yes Hydration Status Stable: Yes Pain Control Satisfactory: Yes Nausea and Vomiting Control Satisfactory: Yes Mental Status Recovered: Yes Vital Signs: Last Vital Signs Temp 36.2 C 06/25/21 11:30 Pulse 63 06/25/21 11:30 Resp 13 06/25/21 11:30 BP 103/64 06/25/21 11:30 Pulse Ox 100 06/25/21 11:30
--- NOTE | 2021-06-25 13:17 | PCM.SN.2 ---
- Free Text/Narrative Note: Left selective femoral nerve block at the adductor canal for post-procedure pain control under US guidance requested by Dr. Evans. Time Out: 1011 Start: 1115 End: 1117 Chart reviewed. Consent signed. Questions answered. Appropriate monitors applied. Time out performed. Left mid-shaft femur identified with ultrasound, scanning medially of femur, the femoral artery in the adductor canal visualized, and the femoral nerve located laterally to the artery. The skin was prepped lateral to the ultrasound probe with chlorahexadine times two. The 21ga 4 insulated block needle was inserted under direct ultrasound guidance into the adductor canal. 20mL of 0.5% ropivacaine with 1:200,000 epinephrine was injected circumferentially around the nerve with intermittent negative aspiration noted. Patient tolerated the procedure well. Sterile technique noted along with sterile gloves, mask, and sterile probe cover. See picture on progress note and vital signs on nurses notes. Block completed in PACU. Mima Jones CRNA
--- NOTE | 2021-07-13 07:13 | PCM.OPNOTE ---
- General Post-Op/Procedure Note Date of Surgery/Procedure: 06/25/21 Operative Procedure(s): left knee patellofemoral arthroplasty Pre Op Diagnosis: left knee patellofemoral arthritis Post-Op Diagnosis: Same Anesthesia Technique: Local, MAC, Spinal Primary Surgeon: Andrews Evans Anesthesia Provider: Mima Jones Hot Metal Car Operator: Carolyn Crespo Hot Metal Car Operator: Kary Lee EBCalvin in mLs: 5 Complications: None Condition: Good Free Text/Narrative:: 4 32x10
--- NOTE | 2021-07-13 07:59 | OR ---
DATE OF OPERATION: 06/25/2021 SURGEON: Andrews Evans MD OPERATION PERFORMED: Left knee patellofemoral arthroplasty. PREOPERATIVE DIAGNOSIS: Left knee patellofemoral arthritis. POSTOPERATIVE DIAGNOSIS: Left knee patellofemoral arthritis. ANESTHESIA: Local MAC with spinal. ANESTHESIA PROVIDER: Mima Jones. MACHINE PULLER AND LASTER: Carolyn Crespo PA-C, and Kary Lee LPN. ESTIMATED BLOOD LOSS: 5 mL. COMPLICATIONS: None. CONDITION: Stable. IMPLANTS: 1. Hi Hat size 4 femoral PS tray component. 2. Misty size 32 x 10 mm press-fit asymmetric patella. DESCRIPTION OF PROCEDURE: The patient was identified in the preoperative holding area. Proper site was marked and identified by the surgeon. The patient was taken back to the operative theater where after adequate anesthesia the patient's left lower extremity had a nonsterile tourniquet applied and then sterilely prepped and draped in the usual sterile fashion. OR time-out was performed. Patient received 2 g IV Ancef. At this time, left lower extremity was exsanguinated. Tourniquet was insufflated to 250 mmHg. At this time, standard anterior incision was made, and medial parapatellar arthrotomy was created making sure not to damage the intermeniscal ligament or the cartilage. At this time, the patient was noted to have no chondromalacia really other than a small amount on the lateral side and severe retropatellar arthritis. At this time, the patient was a good candidate for a patellofemoral arthroplasty. The patella was measured. It was measured to be a 23. It was resected to 14 for a 32 x 10 mm patella. Drill holes were drilled, and the patient was found to have adequate bone. Two 4.0 Schanz pins were then placed intraincisionally on the femur for the [employer] robotic array, and checkpoint was placed on the femur. Hip center of rotation was obtained. Medial and lateral malleoli were marked. At this time, 40 points were obtained off the femur for the [employer] robotic plan for the patellofemoral arthroplasty. The component was then aligned to the articular surface using the [employer] robotic plan. It was found to be in adequate positioning. The bur on the [employer] robotic arm was then brought in, and all the green was burred off the plan. Three drill holes were then placed for the pegs using the bur. At this time, trial implant of size 4 was placed as well as a 32 x 10 trial of patellar component. Patella was tracking centrally. There were no signs of malalignment or maltracking. At this time, cement was mixed on the back table. The femur was irrigated and completely dried. The size 4 femoral component was then cemented into place and impacted into place, and a 32 x 10 mm patella was press fit in place. At this time, 1 L pulse lavage irrigation with Ancef was irrigated through the knee along with 400 mL of Irrisept irrigation. Topical tranexamic acid and vancomycin powder were applied. Periarticular injection was completed, and #2 barbed suture was used for closure of the medial parapatellar arthrotomy after the [employer] robotic array and checkpoint were removed, 2-0 Vicryl and Stratafix were used subcutaneously, and Prineo was used for skin closure. The patient had a sterile soft dressing applied and was sent to PACU in stable condition. MMODAL /[id number]
== END 2021-06-25 13:00 | disposition home or self-care (01) ==
LOC: JD.SDS 07:04
PROVIDERS: ATTEND Orthopaedic Surgery
DX: M17.12 Unilateral primary osteoarthritis, left knee (principal); G89.29 Other chronic pain; Z86.16 Personal history of COVID-19; G62.9 Polyneuropathy, unspecified; G89.18 Other acute postprocedural pain; E55.9 Vitamin D deficiency, unspecified; G43.909 Migraine, unspecified, not intractable, without status migrainosus; Z90.49 Acquired absence of other specified parts of digestive tract; Z98.890 Other specified postprocedural states; Z79.899 Other long term (current) drug therapy; Z88.0 Allergy status to penicillin; Z88.2 Allergy status to sulfonamides
CPT/HCPCS: 27599; 73560; 97116; 97161; A9270; C1713; C1776; J0171; J0690; J0697; J1630; J1885; J2250; J2270; J2405; J2704; J2795; J3370; J7050; J7120; 01392; 64450; J3010